=== PATIENT | female | born 1960 | race Caucasian/White ===

== ENCOUNTER 2018-05-16 06:56 | Day surgery (SDC) | payer OTHER ==
[2018-05-16] MEDS ORDERED: NA CHLORIDE 0.9% 1,000 ML ONE (07:34)
[2018-05-16] MEDS ORDERED: LIDOCAINE 1% W/EPI 1:100,000 MDV 50 ML VIAL ONE (07:34)
[2018-05-16] MEDS ORDERED: PROPOFOL 200 MG/20 ML VIAL IV ONE (07:46)
[2018-05-16] MEDS ORDERED: LIDOCAINE 2% MPF 5 ML VIAL ONE (07:46)
[2018-05-16] MEDS ORDERED: FENTANYL CITR 100 MCG/2 ML ONE (07:46)
[2018-05-16] MEDS ORDERED: MIDAZOLAM HCL 2 MG/2 ML INJ ONE (07:46)
[2018-05-16] MEDS ORDERED: Ringers Lactate 1,000 ML IV ONE (07:52)
[2018-05-16] MEDS ORDERED: LIDOCAINE 1% MPF 5 ML VIAL ONE (07:53)
[2018-05-16] MEDS ORDERED: KETOROLAC 30 MG/ML INJ ONE (08:51)
--- NOTE | 2018-05-16 20:07 | OP ---
Date of Procedure: 05/16/2018 Surgeon: Nissa Hooks MD Preoperative Diagnosis: Hysteroscopy, dilatation and curettage. Anesthesia: MAC plus paracervical block. Specimens: Endometrial curettings, very scant. Complications: No complications. Drains: No drains. Condition: Stable. Indications: The patient is a 57-year-old with postmenopausal bleeding after 2 years of no bleeding. She has been off her Cimzia and her methotrexate, consented for endometrial sampling after cavity v isualization, consented for hysteroscopy, D and C, brought to the hospital. Description Of Procedure: After informed consent was verified, the patient was taken back to the OR, placed in supine fashion on operating table. After MAC was given, she was placed in dorsal lithotom y position. Pelvic exam was performed. Uterus anteflexed, speculum placed to expose the cervix and the cervix injected with 1% lidocaine mixed with 1:100,000 epinephrine, 8 cc was injected here. Then , 6 cc of each at 4 and 8 o'clock positions of the cervicovaginal junction. Prep x3 with Betadine wa s done. SlimLine hysteroscope was used to enter the cervical canal and under direct visualization, a uterine cavity was entered. The cavity appeared to be unremarkable, undistorted. Both tubal ostia were visualized. Anterior wall was slightly thickened, but rest of the endometrium completely unrema rkable. No endometrial pathology was noted. Scope removed, endometrial curettings performed with a #1 curette, paying more attention to the anterior wall. All instruments were removed. Instrument, needle, and sponge counts were done and were correct at th e end of the case. The patient was recovered from anesthesia in the OR and taken to PACU in stable c ondition. Specimen handed off for permanent pathology. She will follow up with me in 1 week, she taylor s an appointment. Toradol 30 mg was given prior to waking her up for pain control. EVA/SHARON Voice ID: [id number] Report ID: [id number]
== END 2018-05-16 09:30 | disposition home or self-care (01) ==
LOC: OR 06:56
PROVIDERS: ATTEND Obstetrics & Gynecology
PROC: 0UJD8ZZ Inspection of Uterus and Cervix, Via Natural or Artificial Opening Endoscopic (ICD-10-PCS; 2018-05-16)
PROC: 0UDB7ZX Extraction of Endometrium, Via Natural or Artificial Opening, Diagnostic (ICD-10-PCS; principal; 2018-05-16 08:30)
DX: N95.0 Postmenopausal bleeding (principal); K21.9 Gastro-esophageal reflux disease without esophagitis; E78.00 Pure hypercholesterolemia, unspecified; L40.50 Arthropathic psoriasis, unspecified; Z88.6 Allergy status to analgesic agent; Z80.41 Family history of malignant neoplasm of ovary; Z80.0 Family history of malignant neoplasm of digestive organs
CPT/HCPCS: 88305; J2250; J2704; J3010; J7030